=== PATIENT | female | born 1990 | race Caucasian/White ===

== ENCOUNTER 2021-04-26 08:11 | Emergency (ER) | payer OTHER, SELFPAY ==
[2021-04-26 08:32] VITALS: BP 144/71; PULSE 90; RESP 18; TEMP 37; O2SAT 98
--- NOTE | 2021-04-26 08:56 | ED.URI ---
HPI - URI/Sore Throat General Chief Complaint: Upper Respiratory Infection Stated Complaint: aches fever diarrhea nausea Time Seen by Provider: 04/26/21 08:57 Source: patient, RN notes reviewed and old records reviewed Mode of arrival: ambulatory Limitations: no limitations History of Present Illness HPI Narrative: 30 year old female who presents to [facility] with complaints of headache, chills and body aches since and has had fever and nausea, vomiting, and diarrhea since Tuesday. patient reports no COVID or Flu vaccinations. She states that she has also got a sore throat but is unsure if it is from vomiting. Patient also voices cough which is dry has been taking Tylenol for her symptoms. MD elicited complaint: fever and other (headache, diarrhea, bodyaches, fever) Related Data Home Medications Medication Instructions Recorded Confirmed etonogestrel [Nexplanon] 1 implant SUBDERMAL ONCE 04/26/21 04/26/21 Allergies Allergy/AdvReac Type Severity Reaction Status Date / Time No Known Allergies Allergy Verified 04/26/21 08:36 Review of Systems Review of Systems: CONSTITUTIONAL: Positive fever, chills, or sweats. EYES: Denies visual changes, redness, or discharge. ENT: Denies rhinorrhea, congestion,positive for sore throat,no otalgia. CARDIOVASCULAR: Denies chest pain, palpitations, or edema. RESPIRATORY: positive intermittent cough no dyspnea. GASTROINTESTINAL: Denies abdominal pain, positive nausea, vomiting, or diarrhea. GENITOURINARY: Denies dysuria or hematuria. SKIN: Denies rash or itching. MUSCULOSKELETAL: Denies back pain, joint pain,positive for body aches NEUROLOGIC: positive headache, numbness, or weakness. PSYCHIATRIC: Denies anxiety or depression. All systems reviewed & are unremarkable except as noted in HPI and below PMFSH Past Medical History Medical History (Updated 04/27/21 @ 11:35 by Juliet Colorado NP) No significant past medical history Surgical History Surgical History (Updated 04/26/21 @ 09:17 by Juliet Colorado NP) No history of previous surgery Family History Family History (Updated 04/27/21 @ 11:36 by Juliet Colorado NP) Grandparent Hypertension Diabetes mellitus Cerebrovascular accident Mother Hypertension Social History Social History (Updated 04/27/21 @ 11:40 by Juliet Colorado NP) Smoking packs per day: 0.5 Smoking cigarettes per day: 10.0 Smoking status: Current every day smoker Tobacco type: cigarettes Alcohol intake: unknown Alcohol use details: states no alcohol use Substance use: current Substance use type: marijuana Last use: occasional Living arrangements: with family Gender identity (if verbalized by the patient): Female Exam Narrative: GENERAL:Ill-appearing, well-nourished, and in no acute distress. HEAD: Normocephalic, atraumatic. EYES: PERRLA and EOMI. ENT: Nares clear, no rhinorrhea or epistaxis. Mucous membranes moist. TMs normal with good light reflex, throat red no exudate or lesions tonsils red swollen painful swallowing NECK: Supple. No lymphadenopathy CHEST: Clear to auscultation. No respiratory distress. SaO2 98% dry cough HEART: Regular rate and rhythm. No murmur heard. Normal peripheral pulses. ABDOMEN: Soft, nontender, nondistended, normal active bowel sounds.diarrhea reported EXTREMITIES: Normal range of motion. No edema. SKIN: Warm, dry, no rash. NEURO: No focal deficits. Alert and oriented x3. Course Course Level of Care: Express Care Visit Vital Signs Vital signs: Vital Signs Temperature 37.0 C 04/26/21 08:32 Pulse Rate 90 04/26/21 08:32 Respiratory Rate 18 04/26/21 08:32 Blood Pressure 144/71 H 04/26/21 08:32 Pulse Oximetry 98 04/26/21 08:32 Temperature 37.0 C 04/26/21 08:32 Pulse Rate 90 04/26/21 08:32 Respiratory Rate 18 04/26/21 08:32 Blood Pressure 144/71 H 04/26/21 08:32 Pulse Oximetry 98 04/26/21 08:32 MDM - URI/Sore Throat Different
== END 2021-04-26 09:25 | disposition home or self-care (01) ==
PROVIDERS: Emergency Provider Registered Nurse
DX: U07.1 COVID-19 (principal); F17.210 Nicotine dependence, cigarettes, uncomplicated; F12.90 Cannabis use, unspecified, uncomplicated
CPT/HCPCS: 87081; 87426; 87804; 87880; 99213; C9803; G0463